=== PATIENT | male | born 1975 | race Caucasian/White ===

== ENCOUNTER 2021-11-09 11:57 | Outpatient (REF) | payer BC, SELFPAY ==
[2021-11-09 14:00] LABS: Alanine Aminotransferase 28 U/L (0-40); Albumin Level 4.5 g/dL (3.5-5.0); Alkaline Phosphatase 53 U/L (39-117); Anion Gap 14 (12-20); Aspartate Amino Transferase 29 U/L (5-37); Bilirubin Total 1.3 mg/dL (0.0-1.0); Blood Urea Nitrogen 11 mg/dL (9-16); Calcium 10.5 mg/dL (8.4-10.2); Carbon Dioxide 25 mmol/L (22-29); Chloride 103 mmol/L (96-108); Cholesterol 220 mg/dL; Estimated Glomerular Filt Rate > 60; Glucose Fasting 99 mg/dL (60-99); HDL Cholesterol 88 mg/dL; LDL Cholesterol Calculated 108 mg/dl; Potassium 4.1 mmol/L (3.3-5.1); Sodium 138 mmol/L (135-145); Total Protein 7.9 g/dL (6.5-8.0); Triglycerides 121 mg/dL
[2021-11-09 14:07] LABS: Prostate Specific Antigen Scr 0.76 ng/mL (<0.05-4.0); TSH reflex Free T4 2.34 uIU/mL (0.32-4.0)
== END 2021-11-09 11:58 | disposition home or self-care (01) ==
LOC: HO.WFDLDS 11:57
PROVIDERS: Visit Provider Family Medicine
DX: Z00.00 Encounter for general adult medical examination without abnormal findings (principal); Z12.5 Encounter for screening for malignant neoplasm of prostate
CPT/HCPCS: 36415; 80053; 80061; 84153; 84443

== ENCOUNTER → 2021-11-30 12:55 | Outpatient (BNVA) | payer BC, SELFPAY | PROVIDERS: PCP Family Medicine; Referring Provider Family Medicine; Visit Provider Physician Assistant | DX: K64.9 Unspecified hemorrhoids (principal) ==

== ENCOUNTER 2023-05-24 11:45 | Outpatient (AMB) | payer BC, SELFPAY ==
--- NOTE | 2023-05-24 11:52 | MHC.OFFWIV ---
Intake Vital Signs 05/24/23 11:54 Height 5 ft 10 in Weight 214 lb BMI 30.7 BP 126/64 Blood Pressure Location Rt brachial Position Sitting Respiration 13 Pulse 95 Pulse Source Pulse Oximeter Pulse Oximetry (%) 97 Oxygen Delivery Method Room Air Intake Visit Reasons: neck,back,arm pain Intake Note: Patients reports increasing pain at the base of neck on the left side radiating into his left arm and back. Patient reports when he tilts his head to the right the pain is somewhat relieved. Patient has previous history with C5 & C6. Patient Tobacco Use Status: Never used Tobacco Android Ui Developer Required: No Accompanied by: Self / Same As Patient Allergies No Known Allergies Allergy (Verified 05/24/23 12:05) Medication List - Last Reconciled 05/24/23 by NII Edwards-KHOI hydrocortisone 2.5% (Proctosol HC) 1 appl VT BEDTIME PRN Do you need a note to return to daycare/school/sports/work: No HPI HPI Comments History of Present Illness Details here today for reports of acute on chronic pain left side of neck into shoulder. Started ~ 1 week ago. Known medical condition: Cervical Radiculpathy - had been seeing a chiropractor and saw [facility] that recommended fusion C5-6-7. Has tried epidural that did not work. MRI showed L foraminal narrowing at C5-6 and C6-C7. L shoulder impingement - has done PT and cortisone shot for tendonitis. worse since onset poor sleep r/t the pain having tingling and numbness in fingers on left hand has not ff'd up with ring sorter as referred by PCP previously at last encounter. i am trying to avoid a fusion feels better w/ lateral head tilt to right denies new injury using heating pad at home & not really feeling much relief, occassional APAP w little relief Denies red flag sx assoc. PFSH Surgical History History of surgery on wrist Hx of hand surgery Family History Father HTN (hypertension) Mother Liver failure Maternal Grandfather Diabetes Social History (Updated 11/30/21 @ 13:25 by Jennifer Madrid PA-C) Housing: House Patient Tobacco Use Status: Never used Tobacco Tobacco use type: Cigarette e-Cigarette/Vaping Use: Never Used Second Hand Smoke Exposure: No service: Yes Current occupational status: employed Current occupation: [employer] Current occupational exposures/hazards: No Cognitive needs: No Hearing needs: No Vision needs: Yes Review of Systems Const All systems reviewed & are unremarkable except as noted in HPI and below Physical Exam Vital Signs: Last Vital Signs Pulse 95 05/24/23 11:54 Resp 13 05/24/23 11:54 BP 126/64 05/24/23 11:54 Pulse Ox 97 05/24/23 11:54 Oxygen Delivery Method Room Air 05/24/23 11:54 BMI result Body Mass Index 30.7 Neck Other: no pain with flexion, normal rotation to the right, limited rotation to the left reporting pain normal lateral flexion to right, limited lateral flexion to the left + pain with extension Neck: Yes normal visual inspection Neuro General: moves all extremities Cranial nerves: Yes CN's II-XII intact bilaterally Motor exam (neuro): 5/5 motor strength present throughout Extrem General: Yes normal to inspection and Yes no clubbing, cyanosis or edema Left upper extremity: normal to inspection, full ROM, normal capillary refill and shoulder/upper arm Details: inspection abnormal and normal ROM Assessment & Plan Assessment & Plan (1) Left shoulder pain: Code(s): M25.512 - Pain in left shoulder Qualifiers: Chronicity: chronic Qualified Code(s): M25.512 - Pain in left shoulder; G89.29 - Other chronic pain Plan: acute on chronic pain; referred to [facility] pain mgmt. Edu him this is not for cervical fusion rather for other interventions that will help his chronic pain. Strongly encouraged to f/u. In the mean time, i will RX meloxicam. Take w/ food for 10 days. Made aware this is for short term relief and will not cure the chronic problem he suffers from. In addition warm moist heat and gentle ROM exercises can help along w/ avoiding exacerbating activities. (2) Cervical radiculopathy: Code(s): M54.12 - Radiculopathy, cervical region Plan: see above Orders: Referrals Pain Management Referral M25.512 - Pain in left shoulder, M54.12 - Radiculopathy, cervical region Medications: New meloxicam 15 mg PO DAILY 10 tabs 0RF Coding Level of Care Code Est Pt Level 3 (51583) Diagnoses Chronic left shoulder pain M25.512; G89.29 Chronicity: chronic Cervical radiculopathy M54.12
[2023-05-24 11:54] VITALS: BP 126/64; PULSE 95; RESP 13; O2SAT 97; BMI 30.7
== END 2023-05-24 12:15 | disposition home or self-care (01) ==
PROVIDERS: PCP Family Medicine; Visit Provider Nurse Practitioner Family
DX: M25.512 Pain in left shoulder (principal); G89.29 Other chronic pain; M54.12 Radiculopathy, cervical region
CPT/HCPCS: 99213

== ENCOUNTER 2023-06-01 12:55 | Outpatient (AMB) | payer BC, SELFPAY ==
--- NOTE | 2023-06-01 13:03 | A.OFFVIS_ITS ---
Intake Vital Signs 3 06/01/23 13:08 Height 5 ft 10 in Weight 212 lb BMI 30.4 BP 148/96 H Blood Pressure Location Lt brachial Position Sitting Respiration 18 Pulse 104 H Pulse Source Pulse Oximeter Pulse Oximetry (%) 98 Oxygen Delivery Method Room Air Intake Visit Reasons: CERVICAL RADICULOPATHY/lvm Allergies No Known Allergies Allergy (Verified 06/01/23 13:01) HPI HPI Comments 2 History of Present Illness0 Details Peña is a very pleasant 48-year-old male presented to the office today for evaluation and management of his subacute exacerbation of his chronic denies neck pain. Patient reports that he started with this pain over 10 years ago, he had an MRI was evaluated by a neurosurgeon at that time and was told that cervical fusion was his only treatment option. He has been hesitant to go for surgery so has been trying to manage with conservative measures. Patient reports approximately 2 weeks ago he started with left-sided neck pain radiating down the left arm with numbness and tingling of the left index finger and left thumb. Patient was evaluated at walk-in clinic about a week ago, given anti- inflammatory medication and referred here for evaluation management. He reports the anti-inflammatory medication helps a little bit but the effects wear off after several hours. 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 Pain today is rated as an 8/10. Pain is constant and worse in the late afternoon. Patient has not attempted physical therapy, manual manipulation by chiropractor, acupuncture or massage. He has undergone injections in his neck over 10 years ago. In terms of muscle damage condition is described as jumping, flashing, shooting, stabbing, sharp, cutting, tingling, spreading and piercing. Pain is negatively impacting patient's ability to sleep, perform activities of daily living, function normally and work. [facility] Surgical History History of surgery on wrist Hx of hand surgery Family History Father HTN (hypertension) Mother Liver failure Maternal Grandfather Diabetes Social History (Updated 11/30/21 @ 13:25 by Jennifer Madrid PA-C) Housing: House Patient Tobacco Use Status: Never used Tobacco Tobacco use type: Cigarette e-Cigarette/Vaping Use: Never Used Second Hand Smoke Exposure: No service: Yes Current occupational status: employed Current occupation: [employer] Current occupational exposures/hazards: No Cognitive needs: No Hearing needs: No Vision needs: Yes Review of Systems Const All systems reviewed & are unremarkable except as noted in HPI and below Physical Exam Vital Signs: Last Vital Signs Pulse 104 H 06/01/23 13:08 Resp 18 06/01/23 13:08 BP 148/96 H 06/01/23 13:08 Pulse Ox 98 06/01/23 13:08 Oxygen Delivery Method Room Air 06/01/23 13:08 BMI result Body Mass Index 30.4 General: awake, alert, oriented. Answers questions appropriately. Fully engaged in examination. Skin: warm, dry, intact HEENT: Normocephalic. Hearing intact. Cardiac: External chest normal in appearance. Respiratory: No cough, audible wheezing or stridor. Abdomen: without gross distension. MS: Cervical Spine: Visible inspection without gross abnormality Nontender throughout trapezius muscles bilaterally Nontender to palpation over paraspinal muscles Nontender to palpation over cervical vertebrae Patient with mildly decreased cervical ROM. moderate pain upon left lateral rotation. Pain improves with right lateral rotation. Pain with extension. Spurling compression test positive. Elvey's tension test positive on the left Lhermitte's test negative. BUE strength 5/5 Neurological: Oriented to person, place, time and situation. Thought process intact. No gait abnormalities appreciated. Psychiatric: Appropriate mood and affect. Good judgment and insight. Results Reviewed Results Reviewed: 06/07/13 MRI Cervical Spine without Contrast Assessment & Plan Assessment & Plan (1) Cervical radiculopathy: Code(s): M54.12 - Radiculopathy, cervical region (2) Neuropathy: Code(s): G62.9 - Polyneuropathy, unspecified Plan Peña is a very pleasant 48 year old male who presented to the office today for evaluation and management of his left sided neck pain. History, physical exam provocative testing consistent with left cervical radiculopathy. MRI cervical spine without contrast ordered for further evaluation. Excuse note provided to patient. Prednisone 60 mg p.o. daily for 5 days Tizanidine 2 mg p.o. t.i.d. as needed. Patient advised on cautions for use Diclofenac 25 mg p.o. b.i.d.. Patient will discontinue meloxicam. He was advised to avoid use of other nonsteroidal anti-inflammatory medications while taking diclofenac. EMG ordered for evaluation of the neuropathy in both hands. Pending results of MRI, will consider parasagittal epidural steroid injection and potential referral to Neurosurgery. All questions and concerns were answered during the visit, patient verbalized understanding. Follow-up in the office after MRI. Orders: Orders 2 NE electromyogram (EMG) Today G62.9 - Polyneuropathy, unspecified MR cervical spine wo con Today M54.12 - Radiculopathy, cervical region Medications: New 2 prednisone 60mg by mouth daily for 5 days. 60 mg (3 x 20 mg) PO DAILY 15 tabs 0RF tizanidine 2 mg PO TID PRN 30 tabs 1RF muscle spasticity diclofenac potassium 25 mg PO BID PRN 60 caps 1RF pain Coding Level of Care Code New Pt Level 4 (98542) Diagnoses Cervical radiculopathy M54.12 Neuropathy G62.9
[2023-06-01 13:08] VITALS: BP 148/96; PULSE 104; RESP 18; O2SAT 98; BMI 30.4
== END 2023-06-01 13:45 | disposition home or self-care (01) ==
PROVIDERS: PCP Family Medicine; Referring Provider Family Medicine; Visit Provider Registered Nurse Emergency
DX: M54.12 Radiculopathy, cervical region (principal); G62.9 Polyneuropathy, unspecified
CPT/HCPCS: 99204

== ENCOUNTER → 2023-06-01 12:55 | Outpatient (BNVA) | payer BC, SELFPAY | PROVIDERS: PCP Family Medicine; Referring Provider Family Medicine; Visit Provider Registered Nurse Emergency ==

== ENCOUNTER 2023-07-13 06:02 | Outpatient (REF) | payer BC, SELFPAY ==
--- NOTE | ~2023-07-13 | FL_ITS ---
EXAMINATION: XR FLUOROSCOPY WITH IMAGES CLINICAL INFORMATION: Radiculopathy cervical region. COMPARISON: None available. TECHNIQUE: Fluoroscopy Supervised By: Mona Rushing. Fluoroscopy Time: 0.2 minutes. Cumulative Dose: 2.52 mGy. DAP: 0.124 Gycm2. Images: 2. FINDINGS: There are 2 digital images obtained in OR revealing posterior spinal needle at the C6-7 or C7-T11 disc level with contrast opacifying the posterior epidural space. Visualized bones are grossly unremarkable. FL/FL guidance in treatment room IMPRESSION: Fluoroscopy was provided to referring physician for pain management.
== END 2023-07-13 06:03 | disposition home or self-care (01) ==
LOC: CF 06:02
PROVIDERS: Visit Provider Internal Medicine
DX: M54.12 Radiculopathy, cervical region (principal)
CPT/HCPCS: 62321; J1040; J1100; J3301; Q9967

== ENCOUNTER 2023-07-13 07:48 | Outpatient (AMB) | payer BC, SELFPAY ==
[2023-07-13 07:53] VITALS: BP 126/82; PULSE 83; RESP 12; O2SAT 98
--- NOTE | 2023-07-13 07:53 | A.OFFVIS_ITS ---
Intake Vital Signs 07/13/23 07:53 07/13/23 08:32 BP 126/82 130/78 Blood Pressure Location Lt brachial Lt brachial Position Sitting Sitting Respiration 12 12 Pulse 83 81 Pulse Source Pulse Oximeter Pulse Oximeter Pulse Oximetry (%) 98 98 Oxygen Delivery Method Room Air Room Air Intake Visit Reasons: Left C7-T1 parasagittal interlaminar MURTAZA Allergies No Known Allergies Allergy (Verified 07/13/23 07:53) HPI Left C7-T1 parasagittal interlaminar MURTAZA HPI Details Patient presents for scheduled procedure. Denies any recent cough, cold, infection, fever or other significant changes in medical history since last office visit. [facility] Surgical History History of surgery on wrist Hx of hand surgery Family History Father HTN (hypertension) Mother Liver failure Maternal Grandfather Diabetes Social History (Updated 11/30/21 @ 13:25 by Jennifer Madrid PA-C) Housing: House Patient Tobacco Use Status: Never used Tobacco Tobacco use type: Cigarette e-Cigarette/Vaping Use: Never Used Second Hand Smoke Exposure: No service: Yes Current occupational status: employed Current occupation: [employer] Current occupational exposures/hazards: No Cognitive needs: No Hearing needs: No Vision needs: Yes Physical Exam Vital Signs: Last Vital Signs Pulse 81 07/13/23 08:32 Resp 12 07/13/23 08:32 BP 130/78 07/13/23 08:32 Pulse Ox 98 07/13/23 08:32 Oxygen Delivery Method Room Air 07/13/23 08:32 Office Procedures Joint Injection/Drain Joint Injection/Drain Details: Interlaminar epidural steroid injection, Left, C7-T1 parasaggital After obtaining written consent, pre-procedure blood pressure and heart rate were stable and recorded in the nursing record. The patient was placed in the prone position. The cervicothoracic area was widely prepped with chloraprep and draped in sterile fashion. Fluoroscopic guidance was used to identify the desired interlaminar space and for needle placement. Subcutaneous 0.5% lidocaine was used to anesthetize the skin overlying the target. A 20-gauge Pace needle was advanced to the epidural space using loss of resistance to contrast technique under fluoroscopic AP and contralateral oblique views. There was no evidence of heme or CSF and no paresthesias were elicited with needle placement. Confirmation of epidural needle placement was performed with 1cc of omnipaque 180. Next 3 ml 0.5% lidocaine mixed with Dexamethasone 10 mg was administered epidurally with no pain elicited on injection. The needle tract tubing was then cleared with the stylet. The needle was removed, skin cleansed and a sterile bandage was applied. The patient tolerated the procedure well and no complications were encountered. Following the procedure the patient's vital signs were stable. The patient was discharged home in good condition with post-procedural instructions. Time Out: Immediately prior to the procedure, the following was verbally confirmed that there is a signed consent form and that the correct patient, planned procedure, site and side are consistent with documentation and that necessary equipment and/or blood products are available prior to the start of the case. Complications: none EBL: <5 cc Coding 98614 - Cervical Epidural/Interlaminar with fluoroscopy Procedure code (CPT) selection complete Assessment & Plan Assessment & Plan (1) Cervical radiculopathy: Code(s): M54.12 - Radiculopathy, cervical region Plan Patient is status post left parasagittal interlaminar C7-T1 MURTAZA. Patient tolerated procedure well and was discharged home in stable condition with discharge instructions. All questions were answered. We will follow-up via telephone or in clinic to assess response to therapy. A follow-up appointment was made during today's visit. Orders: Orders FL guidance in treatment room Today M54.12 - Radiculopathy, cervical region Coding Level of Care Code Procedure Only Diagnoses Cervical radiculopathy M54.12 CPT Codes Coding - Joint 10: 07721 - Cervical Epidural/Interlaminar with fluoroscopy ([id number])
[2023-07-13 08:32] VITALS: BP 130/78; PULSE 81; RESP 12; O2SAT 98
== END 2023-07-13 08:30 | disposition home or self-care (01) ==
LOC: HO.PMCPRC 07:48
PROVIDERS: PCP Family Medicine; Visit Provider Internal Medicine
DX: M54.12 Radiculopathy, cervical region (principal)
CPT/HCPCS: 62321

== ENCOUNTER 2023-07-20 15:33 | Outpatient (REF) | payer BC, SELFPAY ==
--- NOTE | 2023-07-20 15:39 | EMG_ITS ---
Chief complaint: Chronic, recurrent neck pain radiating down to left forearm with numbness on 1st and 2nd digits. Occasional numbness right 4th and 5th digits. Reason for referral: Evaluate for radiculopathy Referred by: Mona Rushing NP Procedure done: Bilateral upper extremities NCS/EMG Precautions and/or limitations: None The limb temperature was monitored continuously and remained between 32-36 degrees C during the performance of the NCS. Nerve Conduction Studies Anti Sensory Summary Table ?Stim Site NR Onset (ms) Norm Onset (ms) Peak (ms) Norm Peak (ms) O-P Amp (?V) Norm O-P Amp Site1 Site2 Delta-0 (ms) Dist (cm) Joe (m/s) Norm Joe (m/s) Left Median Anti Sensory (2nd Digit) Wrist ? 2.5 3.1 <3.6 23.0 >10 Wrist 2nd Digit 2.5 14.0 56 Right Median Anti Sensory (2nd Digit) Wrist ? 2.8 3.4 <3.6 24.3 >10 Wrist 2nd Digit 2.8 14.0 50 Left Radial Anti Sensory (Thumb) Forearm ? 1.4 2.1 <3.1 1.1 Forearm Thumb 1.4 0.0 Left Ulnar Anti Sensory (5th Digit) Wrist ? 2.3 3.3 <3.7 21.7 >15.0 Wrist 5th Digit 2.3 14.0 61 Right Ulnar Anti Sensory (5th Digit) Wrist ? 2.4 3.3 <3.7 19.3 >15.0 Wrist 5th Digit 2.4 14.0 58 Motor Summary Table ?Stim Site NR Onset (ms) Norm Onset (ms) O-P Amp (mV) Norm O-P Amp iAmp (mV) Amp (1st) (%) Site1 Site2 Delta-0 (ms) Dist (cm) Joe (m/s) Norm Joe (m/s) Left Median Motor (Abd Poll Brev) Wrist ? 3.1 <3.9 9.4 >4.5 10.4 100.0 Elbow Wrist 4.0 23.0 58 >45 Elbow ? 7.1 13.1 15.2 139.4 Right Median Motor (Abd Poll Brev) Wrist ? 3.8 <3.9 9.6 >4.5 11.0 100.0 Elbow Wrist 4.1 23.0 56 >45 Elbow ? 7.9 9.8 11.3 102.1 Left Ulnar Motor (Abd Dig Minimi) Wrist ? 2.7 <3.0 9.8 >5 11.8 100.0 B Elbow Wrist 3.8 21.0 55 >45 B Elbow ? 6.5 8.1 10.3 82.7 A Elbow B Elbow 2.0 10.0 50 >45 A Elbow ? 8.5 8.0 10.0 81.6 Right Ulnar Motor (Abd Dig Minimi) Wrist ? 2.5 <3.0 11.1 >5 13.0 100.0 B Elbow Wrist 4.0 23.0 58 >45 B Elbow ? 6.5 11.1 13.0 100.0 A Elbow B Elbow 1.3 10.0 77 >45 A Elbow ? 7.8 10.8 12.8 97.3 EMG ?Side Muscle Nerve Root Ins Act Fibs Psw Amp Dur Poly Recrt Int Pat Comment Right 1stDorInt Ulnar C8-T1 Nml Nml Nml Nml Nml 0 Nml Complete Right FlexCarRad Median C6-7 Nml Nml Nml Nml Nml 0 Nml Complete Right Biceps Musculocut C5-6 Nml Nml Nml Nml Nml 0 Nml Complete Right Triceps Radial C6-7-8 Nml Nml Nml Nml Nml 0 Nml Complete Right Deltoid Axillary C5-6 Nml Nml Nml Nml Nml 0 Nml Complete Left 1stDorInt Ulnar C8-T1 Nml Nml Nml Nml Nml 0 Nml Complete Left FlexCarRad Median C6-7 Incr 1+ 1+ Nml Nml 0 Nml Complete Left Biceps Musculocut C5-6 Nml Nml Nml Nml Nml 0 Nml Complete Left Triceps Radial C6-7-8 Nml Nml Nml Nml Nml 0 Nml Complete Left Deltoid Axillary C5-6 Nml Nml Nml Nml Nml 0 Nml Complete Paraspinal EMG ?Side Muscle Nerve Root Ins Act Fibs Psw Comment Right Cervical Upper Rami Nml Nml Nml Right Cervical Mid Rami Nml Nml Nml Right Cervical Lower Rami Nml Nml Nml Left Cervical Upper Rami Nml Nml Nml Left Cervical Mid Rami Nml Nml Nml Left Cervical Lower Rami Nml Nml Nml FINDINGS: All motor and sensory nerves tested showed normal latencies, amplitudes and conduction velocities. Concentric needle EMG was performed in selected muscles of the bilateral upper extremities and cervical paraspinals. Study revealed Signs of electric abnormalities as shown in the table below. Left FCR showed increased insertional activity, PSWs and fibrillations. No denervation seen on cervical paraspinals. IMPRESSION: 1. This is a normal an abnormal study. 2. There is electrodiagnostic findings suggestive of left C6-7 radiculopathy. 3. There is no electrodiagnostic evidence for median neuropathy, ulnar neuropathy, or brachial plexopathy. Thank you for your kind referral. Bety Kelly MD, [place] Board Certified, [place] Board [employer] Physical Medicine and Rehabilitation (ABPMR) Board Certified, [place] Board of Electrodiagnostic Medicine (ABEM) CODIN 53667 x 2 MTDD
== END 2023-07-20 15:34 | disposition home or self-care (01) ==
LOC: HO.NEURO 15:33
PROVIDERS: PCP Family Medicine; Visit Provider Registered Nurse Emergency
DX: G62.9 Polyneuropathy, unspecified (principal); M54.2 Cervicalgia; R20.0 Anesthesia of skin
CPT/HCPCS: 95886; 95911

== ENCOUNTER → 2023-07-20 15:39 | Outpatient (BNV) | payer BC, SELFPAY | PROVIDERS: PCP Family Medicine; Visit Provider Physical Medicine & Rehabilitation | DX: M50.123 Cervical disc disorder at C6-C7 level with radiculopathy (principal); M79.641 Pain in right hand; M79.642 Pain in left hand; R20.0 Anesthesia of skin | CPT/HCPCS: 95886; 95911 ==

== ENCOUNTER 2023-08-10 08:34 | Outpatient (AMB) | payer BC, SELFPAY ==
--- NOTE | 2023-08-10 08:56 | A.OFFVIS_ITS ---
Intake Vital Signs 3 08/10/23 08:57 Height 5 ft 10 in Weight 213 lb 2 oz BMI 30.6 BP 133/90 H Blood Pressure Location Lt brachial Position Sitting Respiration 16 Pulse 88 Pulse Source Pulse Oximeter Pulse Oximetry (%) 98 Oxygen Delivery Method Room Air Intake Visit Reasons: s/p Left C7-T1 parasag interlaminar MURTAZA Allergies No Known Allergies Allergy (Verified 08/10/23 08:56) HPI HPI Comments 2 History of Present Illness0 Details Patient presents to the office today for follow up 1 month s/p left C7- T1 parasaggital performed 07/13/23. He reports 70% improvement in pain, function and mobility. He does continue to endorse decreased range of motion and pain with full left and right rotation. His most bothersome complaint is numbness tingling to the left index and thumb. He states that this becoming more pronounced in his now almost constant. Concern for upcoming physical activity testing that is required for the . This would involve pushups, sit-ups and running. Has not been able to perform such physical activity without worsening pain. Prior: Peña is a very pleasant 48-year-old male presented to the office today for evaluation and management of his subacute exacerbation of his chronic denies neck pain. Patient reports that he started with this pain over 10 years ago, he had an MRI was evaluated by a neurosurgeon at that time and was told that cervical fusion was his only treatment option. He has been hesitant to go for surgery so has been trying to manage with conservative measures. Patient reports approximately 2 weeks ago he started with left-sided neck pain radiating down the left arm with numbness and tingling of the left index finger and left thumb. Patient was evaluated at walk-in clinic about a week ago, given anti- inflammatory medication and referred here for evaluation management. He reports the anti-inflammatory medication helps a little bit but the effects wear off after several hours. 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 Pain today is rated as an 8/10. Pain is constant and worse in the late afternoon. Patient has not attempted physical therapy, manual manipulation by chiropractor, acupuncture or massage. He has undergone injections in his neck over 10 years ago. In terms of muscle damage condition is described as jumping, flashing, shooting, stabbing, sharp, cutting, tingling, spreading and piercing. Pain is negatively impacting patient's ability to sleep, perform activities of daily living, function normally and work. [facility] Surgical History History of surgery on wrist Hx of hand surgery Family History Father HTN (hypertension) Mother Liver failure Maternal Grandfather Diabetes Social History (Updated 11/30/21 @ 13:25 by Jennfier Madrid PA-C) Housing: House Patient Tobacco Use Status: Never used Tobacco Tobacco use type: Cigarette e-Cigarette/Vaping Use: Never Used Second Hand Smoke Exposure: No service: Yes Current occupational status: employed Current occupation: [employer] Current occupational exposures/hazards: No Cognitive needs: No Hearing needs: No Vision needs: Yes Review of Systems Const All systems reviewed & are unremarkable except as noted in HPI and below Physical Exam Vital Signs: Last Vital Signs Pulse 88 08/10/23 08:57 Resp 16 08/10/23 08:57 BP 133/90 H 08/10/23 08:57 Pulse Ox 98 08/10/23 08:57 Oxygen Delivery Method Room Air 08/10/23 08:57 BMI result Body Mass Index 30.6 General: awake, alert, oriented. Answers questions appropriately. Fully engaged in examination. Skin: warm, dry, intact HEENT: Normocephalic. Hearing intact. Cardiac: External chest normal in appearance. Respiratory: No cough, audible wheezing or stridor. Abdomen: without gross distension. MS: Cervical Spine: Patient with mildly decreased cervical ROM. BUE strength 5/5 Neurological: Oriented to person, place, time and situation. Thought process intact. Psychiatric: Appropriate mood and affect. Good judgment and insight. Results Reviewed Results Reviewed: 06/12/23 MR CS 07/20/23 EMG IMPRESSION: 1. This is a normal an abnormal study. 2. There is electrodiagnostic findings suggestive of left C6-7 radiculopathy. 3. There is no electrodiagnostic evidence for median neuropathy, ulnar neuropathy, or brachial plexopathy. Assessment & Plan Assessment & Plan (1) Cervical radiculopathy: Code(s): M54.12 - Radiculopathy, cervical region (2) Neuropathy: Code(s): G62.9 - Polyneuropathy, unspecified Plan Peña is a very pleasant 48 year old male who presented to the office today for follow-up 1 month status post C7/T1 parasagittal MURTAZA. Patient reports approximately 70% improvement in pain, function mobility since the injection. He does endorse continued numbness to the left index and thumb, now becoming more constant. Excuse note provided to patient. Referral placed to neuro spine evaluation given patient worsening left upper extremity neuropathy. Patient will expect a call to schedule appointment. All questions and concerns were answered, patient agrees to plan. Follow-up in the office in 2 months for repeat MURTAZA, sooner if needed. Orders: Orders 2 FL guidance in treatment room Today M54.12 - Radiculopathy, cervical region Referrals 2 Neuro Spine Referral M54.12 - Radiculopathy, cervical region Coding Level of Care Code Est Pt Level 3 (66091) Diagnoses Cervical radiculopathy M54.12 Neuropathy G62.9
[2023-08-10 08:57] VITALS: BP 133/90; PULSE 88; RESP 16; O2SAT 98; BMI 30.6
== END 2023-08-10 09:15 | disposition home or self-care (01) ==
PROVIDERS: PCP Family Medicine; Visit Provider Registered Nurse Emergency
DX: M54.12 Radiculopathy, cervical region (principal); G62.9 Polyneuropathy, unspecified
CPT/HCPCS: 99213

== ENCOUNTER → 2023-08-10 08:34 | Outpatient (BNVA) | payer BC, SELFPAY | PROVIDERS: PCP Family Medicine; Visit Provider Registered Nurse Emergency | DX: M54.12 Radiculopathy, cervical region (principal) ==

== ENCOUNTER 2023-08-22 13:35 | Outpatient (AMB) | payer BC, SELFPAY ==
--- NOTE | 2023-08-22 13:41 | A.SPINEOV_ITS ---
Intake Intake Visit Reasons: multilevel degenerative disc disease Intake Note: Mr. Almendarez is here today for low back pain Superintendent Communications Required: No Allergies No Known Allergies Allergy (Verified 08/10/23 08:56) Assessment & Plan Assessment & Plan (1) Cervical radiculopathy: Code(s): M54.12 - Radiculopathy, cervical region Plan Dear Mona, Thank you for referring MR Almendarez to our office today. 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 He has episodic flare-ups of pain that will come and go and can be very intense. More recently in April he had a severe flare up with shooting pain down his arm into his hand with tingling of his thumb and his index finger. He underwent a cortisone injection at your office and that seems to have ce nted the pain enough that he can function and he is back to work. Was taking meloxicam, prednisone, tizanidine without any significant benefit. He is now to a point where he only has to take these medications if he is in anticipating a problem where he will have to do excessive amounts of lifting or work with his neck. He does not report any weakness of his hands. He does get numbness in his hands at night, specifically in the index finger and thumb. He had an EMG showing a left C6, C7 radiculopathy. He also had an MRI showing multilevel degenerative disc disease. He is here today for evaluation for possible surgical intervention. Was previously evaluated at [facility] about 10 years ago by who told him that if he continued up flare-ups he would be a candidate for an anterior cervical fusion. PMH: Otherwise healthy Social hx: A few years ago he did have a problem with drinking and sought some counseling but he is not having any addiction issues with alcohol, he does not smoke or use any recreational drugs Medications: Currently only taking meloxicam as needed Allergies: None Physical exam: Strength in bilateral upper extremities is full, reflexes absent at the biceps and triceps. Negative Tinel sign, negative Phalen sign, negative Cameron sign, gait is normal Imaging review: [facility] disease, on the left C4-5 there is foraminal narrowing, bilateral C5-6 is moderate to severe foraminal narrowing, on the left at C6-7 there is foraminal narrowing and maybe a small disc herniation. There is central canal stenosis but no cord signal change. 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 It responded beautifully to a an epidural injection in the neck. He has currently not having radiculopathy. He does have numbness of both of his index fingers and thumb. He had an EMG confirming C6 and C7 radiculopathy on the left. No carpal tunnel was noted on the EMG. We discussed the fact that since he has currently not having any active radiculopathy symptoms and his overall functioning and level pain is not disabling that we would not preventatively do surgery. If he has another flare-up and returns to see us I think he would be a good candidate for an anterior cervical fusion, likely C5-6 and C6-7. If he has another flare-up I will review his imaging with Dr. Domínguez and we can put him on the books for surgery. He has an upcoming physical fitness test for the , and I told him we would be happy to fill out any paperwork saying he can defer this fits going to aggravate his neck. Thank you for allowing us to care for your patient. The total time spent with this visit with this patient was 45 minutes reviewing history, physical exam, cervical spine imaging review, and implementation of treatment plan or further diagnostic testing Federico Domínguez MD,PhD [facility] Coding Level of Care Code New Pt Level 4 (36519) Diagnoses Cervical radiculopathy M54.12
== END 2023-08-22 14:24 | disposition home or self-care (01) ==
PROVIDERS: PCP Family Medicine; Referring Provider Registered Nurse Emergency; Visit Provider Physician Assistant
DX: M54.12 Radiculopathy, cervical region (principal)
CPT/HCPCS: 99204

== ENCOUNTER → 2023-08-22 13:35 | Outpatient (BNVA) | payer BC, SELFPAY | PROVIDERS: PCP Family Medicine; Visit Provider Physician Assistant ==

== ENCOUNTER 2023-11-13 12:03 | Outpatient (AMB) | payer BC, SELFPAY ==
--- NOTE | 2023-11-13 12:04 | A.OFFPC_ITS ---
Vital Signs 11/13/23 12:07 Height 5 ft 10 in Weight 219 lb 4 oz BMI 31.5 BP 140/72 H Blood Pressure Location Lt brachial Position Sitting Pulse 97 Pulse Source Pulse Oximeter Pulse Oximetry (%) 97 Oxygen Delivery Method Room Air Intake Visit Reasons: CPE Intake Note: Patient is here for his physical today. Allergies No Known Allergies Allergy (Verified 11/13/23 12:08) Medication List - Last Reconciled 11/13/23 by Kaushik Newell MD diclofenac potassium 50 mg PO BID diclofenac potassium 25 mg PO BID PRN hydrocortisone 2.5% (Proctosol HC) 1 appl [place] BEDTIME PRN meloxicam 15 mg PO DAILY Tobacco use date assessed: 11/13/23 Dental Screening Dental Screen Date: 11/13/23 Did you have a dental visit in the last 12 months?: Yes Did you have a dental problem in the last 6 months where you did not have access to dental care?: No Was dental information given to patient?: Patient has dentist HPI CPE HPI Details 48 y/o male presents for a CPE with f/u labs and health maintenance. No recent labs to review. Pt reports ongoing issues with hemorrhoids. Also has ongoing complaints of neuropathy. PFSH Surgical History Hx of hand surgery History of surgery on wrist Family History Father HTN (hypertension) Mother Liver failure Maternal Grandfather Diabetes Social History Housing: House Patient Tobacco Use Status: Never used Tobacco Tobacco use type: Cigarette e-Cigarette/Vaping Use: Never Used Second Hand Smoke Exposure: No service: Yes Current occupational status: employed Current occupation: [employer] Current occupational exposures/hazards: No Cognitive needs: No Hearing needs: No Vision needs: Yes Questionnaire PHQ-9 Over the last 2 weeks, how often have you been bothered by any of the following problems? 1. Little interest or pleasure in doing things: not at all 2. Feeling down, depressed, or hopeless: not at all 3. Trouble falling or staying asleep, or sleeping too much: not at all 4. Feeling tired or having little energy: not at all 5. Poor appetite or overeating: not at all 6. Feeling bad about yourself - or that you are a failure or have let yourself or your family down: not at all 7. Trouble concentrating on things, such as reading the newspaper or watching television: not at all 8. Moving or speaking so slowly that other people could have noticed. Or the opposite - being so fidgety or restless that you have been moving around a lot more than usual: not at all 9. Thoughts that you would be better off or of hurting yourself in some way: not at all Total score: 0 Depression Screening Interpretation: Negative Depression Screening Done: Yes 38693 - PHQ-9 Billing: Yes Source: Developed by Drs. Sean Alvarez, Claire Gonzalez, Arturo Mcdonough and colleagues, with an educational rhonda from [employer]. Thrive Questionnaire Date Thrive assessed: 09/07/21 AUDIT C Alcohol Use Questionnaire (AUDIT-C) 1. How often do you have a drink containing alcohol?: 2-3 times a week 2. How many drinks containing alcohol do you have on a typical day when you are drinking?: 1 or 2 3. How often do you have six or more drinks on one occasion?: Never Total Score: 3 KASIE-7 AMB Questionnaire KASIE-7 Date KASIE - 7 assessed: 11/19/21 Source: Developed by Drs. Sean Alvarez, Claire Gonzalez, Arturo Mcdonough and colleagues, with an educational rhonda from [employer]. KASIE-7 Assessment Billing KASIE-7 Assessment Tool: pt declined-do not bill Review of Systems Const Denies chills, Denies fatigue, Denies fever(s), Denies headache(s) and Denies weakness Eyes Denies change in vision ENT Denies dizziness, Denies headache(s), Denies hearing loss, Denies nasal congestion, Denies sinus pain, Denies sinus pressure and Denies sore throat Card Denies chest pain, Denies lightheadedness, Denies dyspnea and Denies other (palpitations) Resp Denies cough, Denies dyspnea and Denies wheezing GI Denies abdominal pain, Denies melena, Denies hematochezia, Denies change in bowel habits, Denies dyspepsia and Denies nausea Denies hematuria and Denies dysuria Musc Denies abnormal gait, Denies myalgias, Denies arthralgias, Denies numbness and Denies tingling Skin/Breast Denies rash, Denies unusual bruising and Denies wounds Neuro Denies abnormal gait, Denies dizziness, Denies headache(s), Denies memory loss, Denies numbness, Denies Sensory deficit (Neuro), Denies tingling and Denies weakness Psych Denies anxiety, Denies depression and Denies memory loss Endo Denies cold intolerance, Denies fatigue, Denies heat intolerance, Denies polydipsia and Denies polyuria Vincent/Lymph Denies easy bleeding and Denies easy bruising Aller/Immun Denies wheezing Physical exam (Primary Care) Vital Signs: Last Vital Signs Pulse 97 11/13/23 12:07 BP 140/72 H 11/13/23 12:07 Pulse Ox 97 11/13/23 12:07 Oxygen Delivery Method Room Air 11/13/23 12:07 BMI result Body Mass Index 31.5 Tobacco/Smoking Status: Tobacco use Status Tobacco use date assessed 11/13/23 11/13/23 12:10 Patient Tobacco Use Status Never used Tobacco 11/13/23 12:05 Tobacco use type Cigarette 11/13/23 12:05 e-Cigarette/Vaping Use Never Used 11/13/23 12:05 PHQ-9: PHQ-9 Score PHQ-9: Total score 0 11/13/23 12:19 Depression Screening Interpretation: Negative Thrive Assessment: Date of Thrive Assessment Date Thrive assessed 09/07/21 11/13/23 12:05 Const General: no acute distress, well developed, alert and awake Nutritional Appearance: well nourished Orientation/consciousness: patient oriented x3 HENMT Head: Yes normocephalic and Yes atraumatic Ears: hearing grossly normal bilaterally and TM's normal bilaterally General nose exam: Normal external nose present and Normal nares present Mouth: Normal oral and palatal mucosa present and moist mucous membranes Teeth and gingiva: dentition normal Throat: Yes posterior oropharynx normal Eyes General: appearance normal, both eyes and all related structures Pupils: Equal, round and reactive pupils present and Pupil accommodation reflex normal EOM: EOMs intact bilaterally Neck Neck: Yes normal visual inspection, Yes no lymphadenopathy and Yes trachea midline Thyroid: Thyroid normal Carotids: no bruits Lymphatic: no lymphadenopathy noted Chest Chest palpation & inspection: normal inspection of the chest Resp Effort & Inspection: normal respiratory effort Auscultation: clear to auscultation bilaterally Cardio Rate: regular rate Rhythm: regular rhythm Heart sounds: S1 normal heart sound present, S2 normal heart sound present, no gallops, no murmurs and no rubs Bruits: no abdominal aortic bruits and no carotid bruits GI Palpation (GI): No Abdominal aortic bruit present, Soft to palpation, nontender, No hepatosplenomegaly present and No Rebound tenderness present Auscultation: normal bowel sounds General: Yes no CVA tenderness Back/Spine/Pelvis Back: no CVA tenderness Cervical Spine: cervical ROM normal and No Cervical spine tenderness Thoracic/Lumbar Spine: thoraco-lumbar ROM normal, No pain with thoraco-lumbar ROM, No thoracic spinal tenderness and No lumbar spinal tenderness Skin Lesions: no lesions Rashes: no rashes Trauma: no lacerations or abrasions Wounds: no wounds Nails: normal Neuro General: patient oriented x3 Cranial nerves: Yes Equal, round and reactive pupils present Cognition (Neuro): normal cognition Gait exam (Neuro): Normal gait present Motor exam (neuro): 5/5 motor strength present throughout Sensory Exam: No Sensory deficit (Neuro) Deep tendon reflexes (DTR's): Right patellar reflex intensity grade: 2+ and Left patellar reflex intensity grade: 2+ Extrem General: Yes normal to inspection and No edema Psych Appearance: grossly normal Affect: normal affect Attitude: cooperative Thought process: Normal thought process present Assessment and Plan Assessment & Plan (1) Adult general medical exam: Code(s): Z00.00 - Encounter for general adult medical examination without abnormal findings Plan: 48-year-old?male?presents?for?complete?physical?exam Encouraged?healthy?diet?with?active?lifestyle?and?plenty?of?exercise (2) Neuropathy: Code(s): G62.9 - Polyneuropathy, unspecified Plan: History?of?cervical?radiculopathy?with?nerve?impingement?now?s/p steroid?injection?therapy Pain?has?resolved?but?patient?notes?that?he?still?has?some?numbness,?tingling?in ?left?hand Follow-up?with?Neurology?as?recommended Advised?that?some?numbness?may?resolve?over?long?period?of?time (3) Hemorrhoids: Code(s): K64.9 - Unspecified hemorrhoids Plan: Patient?has?ongoing?complaints?of?hemorrhoids Referred?to?general?surgery (4) Screening for prostate cancer: Code(s): Z12.5 - Encounter for screening for malignant neoplasm of prostate Plan: Check?labs (5) Screening for colon cancer: Code(s): Z12.11 - Encounter for screening for malignant neoplasm of colon Plan: Referred?to?Gastroenterology Orders: Orders Comprehensive [employer]. Panel Fast Today Z00.00 - Encounter for general adult medical examination without abnormal findings Lipid Panel Today Z00.00 - Encounter for general adult medical examination without abnormal findings Prostate Specific Antigen Scr Today Z12.5 - Encounter for screening for malignant neoplasm of prostate Microalbumin, Random (w Creat) Today I10 - Essential (primary) hypertension TSH reflex Free T4 Today Z00.00 - Encounter for general adult medical examination without abnormal findings UA and rflx microscopic Today Z00.00 - Encounter for general adult medical examination without abnormal findings Complete Blood Count Auto Diff Today Z00.00 - Encounter for general adult medical examination without abnormal findings Referrals General Surgery Referral K64.9 - Unspecified hemorrhoids Gastroenterology Referral K64.9 - Unspecified hemorrhoids, Z12.11 - Encounter for screening for malignant neoplasm of colon Coding Level of Care Code Est Pt Level 3 (88539) Est Pt Prev Care 40-64y(60676) Diagnoses Adult general medical exam Z00.00 Neuropathy G62.9 Hemorrhoids K64.9 Screening for prostate cancer Z12.5 Screening for colon cancer Z12.11
[2023-11-13 12:07] VITALS: BP 140/72; PULSE 97; O2SAT 97; BMI 31.5
== END 2023-11-13 16:38 | disposition home or self-care (01) ==
PROVIDERS: PCP Family Medicine; Visit Provider Family Medicine
DX: Z00.00 Encounter for general adult medical examination without abnormal findings (principal); G62.9 Polyneuropathy, unspecified; K64.9 Unspecified hemorrhoids; Z12.5 Encounter for screening for malignant neoplasm of prostate; Z12.11 Encounter for screening for malignant neoplasm of colon
CPT/HCPCS: 99396

== ENCOUNTER 2023-11-22 12:14 | Outpatient (REF) | payer BC, SELFPAY ==
[2023-11-22 14:41] LABS: MANUAL DIFF FLAG NO
[2023-11-22 15:18] LABS: Basophils Absolute Auto 0.1 X10*3/uL (0.0-0.2); Basophils Percent Auto 0.8 % (0-2); Eosinophils Absolute Auto 0.1 X10*3/uL (0.0-0.4); Eosinophils Percent Auto 0.7 % (0-4); Hematocrit 49.1 % (42.0-52.0); Imm Gran Abs Auto 0.03 X10*3/uL (0.00-0.03); Imm Gran Pct Auto 0.4 % (0.0-0.4); Lymphocytes Absolute Auto 1.5 X10*3/uL (1.2-4.9); Lymphocytes Percent Auto 20.8 % (20-40); Mean Corpuscular HGB Conc 34.6 g/dl (31.0-36.0); Mean Corpuscular Hemoglobin 31.3 pg (27.0-33.0); Mean Corpuscular Volume 90.4 fL (80.0-98.0); Monocytes Absolute Auto 0.7 X10*3/uL (0.1-1.2); Monocytes Percent Auto 10.3 % (2-11); Neutrophils Absolute Auto 4.8 x10*3/uL (2.0-8.3); Platelet Count 346 X10*3/uL (160-400); Red Blood Count 5.43 X10*6/uL (4.60-5.80); Red Cell Distribution Width 11.6 % (11.0-16.0); White Blood Count 7.1 X10*3/uL (4.8-10.8)
[2023-11-22 15:49] LABS: Alanine Aminotransferase 48 U/L (0-40); Albumin Level 4.7 g/dL (3.5-5.0); Alkaline Phosphatase 72 U/L (39-117); Anion Gap 15 (12-20); Aspartate Amino Transferase 70 U/L (5-37); Bilirubin Total 2.1 mg/dL (0.0-1.0); Blood Urea Nitrogen 11 mg/dL (9-16); Calcium 10.2 mg/dL (8.4-10.2); Carbon Dioxide 26 mmol/L (22-29); Chloride 103 mmol/L (96-108); Cholesterol 216 mg/dL (<200); Estimated Glomerular Filt Rate > 60; Glucose Fasting 95 mg/dL (60-99); HDL Cholesterol 99 mg/dL (>40); LDL Cholesterol Calculated 84 mg/dL (<100); Potassium 4.1 mmol/L (3.3-5.1); Sodium 140 mmol/L (135-145); Total Protein 8.2 g/dL (6.5-8.0); Triglycerides 165 mg/dL (<150)
[2023-11-22 15:55] LABS: Prostate Specific Antigen Scr 1.11 ng/mL (<0.05-4.0)
[2023-11-22 15:56] LABS: TSH reflex Free T4 1.94 uIU/mL (0.32-4.0)
== END 2023-11-22 12:15 | disposition home or self-care (01) ==
LOC: HO.WFDLDS 12:14
PROVIDERS: Visit Provider Family Medicine
DX: Z00.00 Encounter for general adult medical examination without abnormal findings (principal); Z12.5 Encounter for screening for malignant neoplasm of prostate
CPT/HCPCS: 36415; 80053; 80061; 84153; 84443; 85025

== ENCOUNTER 2023-11-23 14:28 | Outpatient (REF) | payer BC, SELFPAY ==
[2023-11-23 14:36] LABS: Appearance Urine Clear; Color Urine Yellow; Glucose Urine UA Negative (Negative); Leukocyte Esterase Urine Negative (Negative); Nitrite Urine Negative (Negative); PH 7.5 (5.0-9.0); Specific Gravity - Urine 1.015 (1.005-1.025); Urine Blood Negative (Negative); Urine Ketones Negative (Negative); Urine Protein Negative (Neg-Trace)
[2023-11-23 15:28] LABS: Creatinine Urine 121.15 mg/dL; Microalbumin Urine < 5.0 mg/L
== END 2023-11-23 14:29 | disposition home or self-care (01) ==
LOC: HO.LNP 14:28
PROVIDERS: Visit Provider Family Medicine
DX: Z00.00 Encounter for general adult medical examination without abnormal findings (principal); I10 Essential (primary) hypertension
CPT/HCPCS: 81003; 82043; 82570

== ENCOUNTER 2023-11-27 15:02 | Outpatient (AMB) | payer BC, SELFPAY ==
[2023-11-27 15:04] VITALS: BP 125/79; PULSE 99; BMI 30.6
--- NOTE | 2023-11-27 15:04 | MHC.OFFVIS ---
Vital Signs 11/27/23 15:04 Height 5 ft 10 in Weight 213 lb BMI 30.6 BP 125/79 Blood Pressure Location Rt brachial Position Sitting Pulse 99 Intake Visit Reasons: Unspecified hemorrhoids Intake Note: This patient presents for an assessment for Unspecified hemorrhoids. Patient c/o; reports no rectal bleeding or pain at this time, reports no constipation or changes in bowel habits. Immigration Associate Required: No Accompanied by: Self / Same As Patient Allergies No Known Allergies Allergy (Verified 11/27/23 15:11) Medication List - Last Reconciled 11/27/23 by Johnny New MD diclofenac potassium 50 mg PO BID hydrocortisone 2.5% (Proctosol HC) 1 appl [place] BEDTIME PRN meloxicam 15 mg PO DAILY HPI HPI Unspecified hemorrhoids: Details: 48-year-old male referred for hemorrhoid issues. He says that he has had hemorrhoids for almost 5 years now and has had frequent swelling, pain and bleeding. He says that he feels his hemorrhoids all the time outside his anus. He sometimes he has difficulty with hygiene as well because of the size of this hemorrhoids. Therefore he says that he wants to proceed with hemorrhoidectomy. He denies being constipated. He says he is healthy overall. [facility] Medical History (Updated 11/27/23 @ 15:43 by Johnny New MD) Bleeding hemorrhoids Surgical History Hx of hand surgery History of surgery on wrist Family History Father HTN (hypertension) Mother Liver failure Maternal Grandfather Diabetes Social History Housing: House Patient Tobacco Use Status: Never used Tobacco Tobacco use type: Cigarette e-Cigarette/Vaping Use: Never Used Second Hand Smoke Exposure: No service: Yes Current occupational status: employed Current occupation: [employer] Current occupational exposures/hazards: No Cognitive needs: No Hearing needs: No Vision needs: Yes Review of Systems Const Denies chills and Denies fever(s) Card Denies chest pain, Denies dyspnea and Denies dyspnea on exertion Resp Denies cough, Denies dyspnea and Denies dyspnea on exertion GI Denies hematochezia and Denies change in bowel habits Denies hematuria and Denies difficulty urinating Musc Denies back pain and Denies limited range of motion Neuro Denies focal weakness and Denies convulsions Psych Denies depression and Denies mood swings Physical Exam Vital Signs: Last Vital Signs Pulse 99 11/27/23 15:04 BP 125/79 11/27/23 15:04 BMI result Body Mass Index 30.6 Const General: comfortable and no acute distress Orientation/consciousness: patient oriented x3 Neck Neck: Yes no lymphadenopathy Resp Auscultation: clear to auscultation bilaterally Cardio Rhythm: regular rhythm GI Other: Rectal exam shows large external hemorrhoids mostly on the left side Palpation (GI): Soft to palpation, nontender and no guarding Neuro General: patient oriented x3 Office Procedures Anoscopy He was in michelle-knife position. The anoscope was gently inserted. A full examination of the anal canal was done. He did have mixed hemorrhoidal columns on the left and right side. On the left side however, he has a large external hemorrhoid, and this appears chronically sclerosed. There were no other lesions. There was no fissure. There was no bleeding. There was no induration. [id number] Assessment & Plan Assessment & Plan (1) Bleeding hemorrhoids: Code(s): K64.9 - Unspecified hemorrhoids Category: Medical Plan: He is large hemorrhoids and describes multiple problems including bleeding, frequent pain and swelling. He wants to proceed with hemorrhoidectomy. I had a long discussion with him about the technique of this procedure which will be exam under anesthesia and hemorrhoidectomy.. I explained the risks including but not limited to bleeding, infections, postop pain, injury to the sphincters, as well as the benefits and alternatives. I reviewed with him what to expect postoperatively He understands and wants to proceed. Coding Level of Care Code New Pt Level 3 (63156) Diagnoses Bleeding hemorrhoids K64.9 CPT Codes Details - CPT: 44016-Tnftosgj ([id number])
== END 2023-11-27 15:39 | disposition home or self-care (01) ==
LOC: HO.HGS 15:02
PROVIDERS: PCP Family Medicine; Visit Provider Surgery
DX: K64.9 Unspecified hemorrhoids (principal)
CPT/HCPCS: 46600; 99203

== ENCOUNTER → 2023-11-27 15:02 | Outpatient (BNVA) | payer BC, SELFPAY | PROVIDERS: PCP Family Medicine; Visit Provider Surgery | DX: K64.9 Unspecified hemorrhoids (principal) | CPT/HCPCS: 46600 ==

== ENCOUNTER 2023-11-28 15:32 | Outpatient (AMB) | payer BC, SELFPAY ==
--- NOTE | 2023-11-28 15:27 | MHC.PC.OV ---
Intake Visit Reasons: f/u CPE-labs via telemedicine Intake Note: Patient is scheduled to follow up on lab results today. Allergies No Known Allergies Allergy (Verified 11/28/23 15:28) Tobacco use date assessed: 11/28/23 Dental Screening Dental Screen Date: 11/13/23 HPI f/u CPE-labs via telemedicine HPI Details 48 y/o male presents to f/u CPE-labs via telemedicine. Labs were drawn 11/22/23. Reviewed labs with pt. Elevated liver enzymes - AST 70 / ALT 48. Triglycerides 165. TC 216. LDL 84. HDL 99. PFSH Medical History Bleeding hemorrhoids Surgical History Hx of hand surgery History of surgery on wrist Family History Father HTN (hypertension) Mother Liver failure Maternal Grandfather Diabetes Social History Housing: House Patient Tobacco Use Status: Never used Tobacco Tobacco use type: Cigarette e-Cigarette/Vaping Use: Never Used Second Hand Smoke Exposure: No service: Yes Current occupational status: employed Current occupation: [employer] Current occupational exposures/hazards: No Cognitive needs: No Hearing needs: No Vision needs: Yes Questionnaire Thrive Questionnaire Date Thrive assessed: 09/07/21 KASIE-7 AMB Questionnaire KASIE-7 Date KASIE - 7 assessed: 11/19/21 Source: Developed by Drs. Sean Alvarez, Claire Gonzalez, Arturo Mcdonough and colleagues, with an educational rhonda from [employer]. Physical exam (Primary Care) Tobacco/Smoking Status: Tobacco use Status Tobacco use date assessed 11/28/23 11/28/23 15:31 Patient Tobacco Use Status Never used Tobacco 11/28/23 15:31 Tobacco use type Cigarette 11/28/23 15:31 e-Cigarette/Vaping Use Never Used 11/28/23 15:31 Thrive Assessment: Date of Thrive Assessment Date Thrive assessed 09/07/21 11/28/23 15:31 Telehealth Telehealth Telehealth Platform: Telephone Location of provider rendering services: practice address Location of patient: address on file Patient Identification confirmed using: Name, : Yes Telehealth method: voice only Patient verbally consented to treatment: Yes Patient verbally consented to billing insurance company: Yes Patient informed of any privacy concerns related to visit: Yes Minutes spent on Phone/Video with Pt.: 5 Assessment and Plan Assessment & Plan (1) Elevated liver enzymes: Code(s): R74.8 - Abnormal levels of other serum enzymes Plan: Elevated?liver?enzymes Also?has?mildly?elevated?bilirubin?and?hemorrhoid Referred?to?Gastroenterology Asking?patient?to?work?on?weight?loss?and?I?will?recheck?his?liver?enzymes?in?6-8?weeks. If?they?are?coming?down?we?can?follow?this?but?if?they?are?the?same?or?higher,?will?check?an?ultrasound. (2) Alcohol abuse: Code(s): F10.10 - Alcohol abuse, uncomplicated Plan: As?above,?elevated?liver?enzymes?and?mildly?elevated?bilirubin Patient?also?has?hemorrhoids Possible?portal?hypertension Will?follow?liver?enzymes?bilirubin. He?is?referred?to?GI Orders: Orders Comprehensive Met. Panel Today R74.8 - Abnormal levels of other serum enzymes Coding Level of Care Code Tele Est Pt Level 2 (68410) Diagnoses Elevated liver enzymes R74.8 Alcohol abuse F10.10
== END 2023-11-28 16:28 | disposition home or self-care (01) ==
LOC: HO.HMGFM 15:32
PROVIDERS: PCP Family Medicine; Visit Provider Family Medicine
DX: R74.8 Abnormal levels of other serum enzymes (principal); F10.10 Alcohol abuse, uncomplicated
CPT/HCPCS: 99441

== ENCOUNTER 2024-01-05 13:04 | Day surgery (SDC) | payer BC, SELFPAY ==
[2024-01-03 10:41] VITALS: BMI 30.6
--- NOTE | 2024-01-04 10:39 | P.CONAN_ITS ---
Documented by User: Tata Mendez NP 01/04/24 10:41 HPI - Anesthesia Eval Consult details Narrative: 48yo M for EUA, Hemorrhoidectomy Mild elevated liver enzymes being followed by PCP (regular ETOH) PMF Active Problems Active Problems: All Active Problems Elevated liver enzymes (Acute) Bleeding hemorrhoids (Acute) Screening for colon cancer (Acute) Neuropathy (Acute) Ear pain (Acute) Screening for prostate cancer (Acute) Adult general medical exam (Acute) Hemorrhoids (Acute) Left shoulder pain (Acute) Cervical radiculopathy (Acute) Anxiety with depression (Acute) Alcohol abuse (Acute) Laboratory examination ordered as part of a complete physical examination (Acute) Past Medical History Medical History (Updated 01/05/24 @ 13:28 by Lisbet Cheek RN) Deviated septum Bleeding hemorrhoids Family History Family History Father HTN (hypertension) Mother Liver failure Maternal Grandfather Diabetes Surgical History Surgical History Hx of hand surgery History of surgery on wrist Social History Social History Housing: House Patient Tobacco Use Status: Never used Tobacco Tobacco use type: Cigarette e-Cigarette/Vaping Use: Never Used Second Hand Smoke Exposure: No Use of substances other than those prescribed or required for medical reasons: No Are you DNR?: No Advance Directives: No Advance Directives Information Provided: Yes service: Yes Current occupational status: employed Current occupation: [employer] Current occupational exposures/hazards: No Cognitive needs: No Hearing needs: No Vision needs: Yes Meds Allergies Allergy/AdvReac Type Severity Reaction Status Date / Time No Known Allergies Allergy Verified 11/28/23 15:28 Exam Height,Weight and Vital Signs: Height 5 ft 10 in Weight 96.615 kg Pertinent Lab Results Pertinent Lab Results: Laboratory Tests 11/22/23 12:15 WBC 7.1 Hgb 17.0 Hct 49.1 Plt Count 346 Sodium 140 Potassium 4.1 Chloride 103 Carbon Dioxide 26 BUN 11 Creatinine 1.08 Total Bilirubin 2.1 H AST 70 H ALT 48 H Alkaline Phosphatase 72 Total Protein 8.2 H Albumin 4.7 Triglycerides 165 H Assessment and Plan Assessment Anesthesia Assessment: Chart Reviewed Documented by User: Radha Montano MD 01/05/24 13:46 PMFSH Past Medical History Medical History (Updated 01/05/24 @ 13:28 by Lisbet Cheek RN) Deviated septum Bleeding hemorrhoids Family History Family History Father HTN (hypertension) Mother Liver failure Maternal Grandfather Diabetes Family history of problems with anesthesia: No Surgical History Surgical History Hx of hand surgery History of surgery on wrist History of Problems with Anesthesia: No Social History Social History Housing: House Patient Tobacco Use Status: Never used Tobacco Tobacco use type: Cigarette e-Cigarette/Vaping Use: Never Used Second Hand Smoke Exposure: No Use of substances other than those prescribed or required for medical reasons: No Are you DNR?: No Advance Directives: No Advance Directives Information Provided: Yes service: Yes Current occupational status: employed Current occupation: [employer] Current occupational exposures/hazards: No Cognitive needs: No Hearing needs: No Vision needs: Yes Meds Allergies Allergy/AdvReac Type Severity Reaction Status Date / Time No Known Allergies Allergy Verified 11/28/23 15:28 Exam Airway Mallampati Class: II TM Dist: >3cm Neck ROM: Full Assessment and Plan Assessment Anesthesia Assessment: Anesthesia Plan Discussed Final Anesthetic Review Family History of Problems with Anesthesia: No History of Problems with Anesthesia: No NPO: Yes ASA Class: II Final Preanesthetic Review: No Changes in Pt Med Stat, Meds/Allgs Chart Reviewed and Consent Obtained/Reviewed Patient Risk: Low Procedure Risk: Low Anesthetic Plan Anesthetic Plan: GA Disposition: Standard PACU
[2024-01-05] VITALS (7 sets, daily range): BP systolic 129–139; BP diastolic 85–93; PULSE 68–87; RESP 14–16; TEMP 36.3–37; O2SAT 96–98; BMI 30.2
[2024-01-05] MEDS: Lactated Ringers 1,000 ML 50 ML IVCONT (13:58)
--- NOTE | 2024-01-05 14:14 | MHC.SHP ---
Pre-Procedural Eval Section A - 24 Hr Update-Section A only Date of Service: 01/05/24 Section B - Complete if H&P > 30 days Chief Complaint: Unspecified hemorrhoids Details of Present Illness: Has chronically bleeding hemorrhoids with pain as well Relevant Social History: None Present Medications: see Short Stay Collaborative assessment Medical History: Significant History (Anxiety and depression, alcohol abuse) Allergies: Allergies Allergy/AdvReac Type Severity Reaction Status Date / Time No Known Allergies Allergy Verified 11/28/23 15:28 Review of Systems Sugical H&P ROS: Negative: Constitution, Cardiovascular, Respiratory, Neurological, Psychiatric, Hem-Onc, Allergic/Immunologic, Gastrointestinal, Genitourinary, Musculoskeletal, Integumentary, Endocrine and Eyes/Ears/Nose/Throat Exam Surgical H&P Exam: Normal: HEENT, Normal: Heart, Normal: Lungs, Normal: Extremities, Normal: Abdomen, Normal: Skin and Normal: Neurological Exam Comment: Hemorrhoids Plan Diagnosis/Plan: Unchanged I have reviewed the history and physical and performed a pertinent physical examination on my patient. No changes have occurred unless specified. Time Spent With Patient Time: Total time managing care of this patient today ____ minutes.
--- NOTE | 2024-01-05 15:24 | P.OP_ITS ---
Operative Note Operative Note Date of Service: 01/05/24 Narrative: Preop diagnosis: Hemorrhoids with pain and discomfort Postop diagnosis: Large internal external hemorrhoid, chronically sclerosed Procedure: Exam under anesthesia hemorrhoidectomy x1 Surgeon: Johnny New MD Highway Administrative Engineer: Naseem Case MS3 The patient is a 48-year-old male was had a long history of and discomfort and bleeding with his hemorrhoids. He wanted to proceed with hemorrhoidectomy. He understood technique of the planned procedure as well as the risks, benefits, and alternatives She was brought to the operating room. He was placed in prone michelle-knife position under general anesthesia via endotracheal tube. The buttocks were retracted with wide tape laterally. The perianal area was prepped and draped in the usual sterile fashion. A surgical time-out was done. The patient received Cefotan 2 g IV preoperatively I infiltrated the perianal area with lidocaine 1% Examination of the anal orifice revealed a large external hemorrhoid, which appeared to be chronically sclerosed, on the left posterior. I inserted the Margarita Blair retractor. I examined the anal canal circumferentially. This hemorrhoidal column was seen and was noted to have some internal component. There were other smaller hemorrhoids on the other areas of the anal canal. There were no other significant lesions or ulcerations in the anal canal. I applied a Green grasper at the hemorrhoidal column. I made a figure of 8 stitch at its pedicle just past the dentate line using a chromic 3-0. I made an incision around this column to the perianal skin with a blade 15. And excise this hemorrhoid above the plane of the sphincters using scissors. I closed this incision with a running chromic 3-0 stitch. Additional multiple hemostatic [id number] sutures were placed. Once hemostasis was confirmed, the procedure was completed. I infiltrated the perianal area with Marcaine 0.5% for postop analgesia The patient tolerated the procedure well. There were no immediate complications. Initial and final counts of sponges and instruments were correct. Estimated blood loss about 25 cc. The patient was extubated without difficulty and transferred to the recovery room with stable vital signs.
== END 2024-01-05 16:49 | disposition home or self-care (01) ==
PROVIDERS: PCP Family Medicine; Visit Provider Surgery
PROC: (CPT 46255; principal; 2024-01-05 14:30)
DX: K64.8 Other hemorrhoids (principal); K64.4 Residual hemorrhoidal skin tags; Z79.899 Other long term (current) drug therapy; Z98.890 Other specified postprocedural states
CPT/HCPCS: 46255; 88304; J0665; J1100; J1885; J2250; J2405; J2704; J2795; J3010

== ENCOUNTER → 2024-01-05 13:04 | Outpatient (BNV) | payer BC, SELFPAY | PROVIDERS: PCP Family Medicine; Visit Provider Surgery | DX: K64.8 Other hemorrhoids (principal) | CPT/HCPCS: 46255 ==

== ENCOUNTER 2024-01-17 09:07 | Outpatient (AMB) | payer BC, SELFPAY ==
--- NOTE | 2024-01-17 09:08 | MHC.OFFVIS ---
Intake Visit Reasons: s/p hemorroidectomy Intake Note: This patient presents for a post-op assessment status post EUA, hemorrhoidectomy Patient c/o; reports no complaints. Surgery date: 01/05/2024 Staff Forester Required: No Accompanied by: Self / Same As Patient Allergies No Known Allergies Allergy (Verified 01/17/24 09:19) HPI HPI s/p hemorroidectomy: Details: He underwent hemorrhoidectomy x2 columns last 01/05/2024. He tolerated procedure well. He currently says he is feeling much better. He did have pain on the 1st week postoperatively. He denies any significant bleeding now. [facility] Medical History Deviated septum Bleeding hemorrhoids Surgical History (Reviewed 01/17/24 @ 09: by Johnny New MD) History of hemorrhoidectomy (~01/05/24) Hx of hand surgery History of surgery on wrist Family History Father HTN (hypertension) Mother Liver failure Maternal Grandfather Diabetes Social History Housing: House Patient Tobacco Use Status: Never used Tobacco Tobacco use type: Cigarette e-Cigarette/Vaping Use: Never Used Second Hand Smoke Exposure: No service: Yes Current occupational status: employed Current occupation: [employer] Current occupational exposures/hazards: No Cognitive needs: No Hearing needs: No Vision needs: Yes Review of Systems Const Denies chills and Denies fever(s) Card Denies chest pain at rest GI Denies hematochezia Physical Exam Const General: comfortable and no acute distress Resp Effort & Inspection: normal respiratory effort Other: Rectal exam shows the hemorrhoidectomy sites to be well healed, no evidence of infection, no bleeding, no induration Assessment & Plan Assessment & Plan (1) Hemorrhoids: Code(s): K64.9 - Unspecified hemorrhoids Category: Medical Plan: Status post hemorrhoidectomy. He is doing very well postoperatively. His incisions are well healed. I advised him to avoid straining and constipation. I told him that if he has an any concerns down the line, he is welcome to come back to the office to be re-evaluated. His path report shows prominent anal papillae. Coding Level of Care Code Global (35649) Diagnoses Hemorrhoids K64.9
== END 2024-01-17 09:36 | disposition home or self-care (01) ==
PROVIDERS: PCP Family Medicine; Visit Provider Surgery
DX: K64.9 Unspecified hemorrhoids (principal)
CPT/HCPCS: 99024

== ENCOUNTER → 2024-01-17 09:07 | Outpatient (BNVA) | payer BC, SELFPAY | PROVIDERS: PCP Family Medicine; Visit Provider Surgery ==